=== PATIENT | male | born 1965 | race Caucasian/White ===

== ENCOUNTER 2019-01-22 07:05 | Day surgery (SDC) | payer BC ==
[~2019-01-22 07:05] MED LIST: CELECOXIB 100 MG CAPSULE PO ONE; FAMOTIDINE 20MG TABLET PO ONE; MECLIZINE 25 MG TABLET PO ONE; METOCLOPRAMIDE 10 MG TABLET PO ONE; VANCOMYCIN 1GM/200ML PREMIX 1 GM/200 ML PIGGYBACK IVPB ONE
[2019-01-22] MEDS ORDERED: KETAMINE HCL 100MG/1ML VIAL INJ ONE (07:06)
[2019-01-22] MEDS ORDERED: ROPIVACAINE HCL (NAROPIN) /PF 5MG/ML 20ML VIAL IV ONE (07:06)
[2019-01-22] MEDS ORDERED: PROPOFOL 10 MG/ML VIAL IV ONE (07:06)
[2019-01-22] MEDS ORDERED: FLUMAZENIL 1MG/10ML VIAL IV ONE (07:06)
[2019-01-22] MEDS ORDERED: MIDAZOLAM HCL 2MG/2ML VIAL IV ONE (07:06)
[2019-01-22] MEDS ORDERED: DEXAMETHASONE 4 MG/ML 1ML VIAL IVP ONE (07:06)
[2019-01-22] MEDS ORDERED: LIDOCAINE 2% MDV (20MG/ML) 20ML VIAL IV ONE (07:06)
[2019-01-22] MEDS ORDERED: TRANEXAMIC ACID 1,000 MG/10 ML ML IV ONE ×2 (07:06)
[2019-01-22] MEDS ORDERED: 0.9 % SODIUM CHLORIDE 10 ML VIAL IVP ONE (07:06)
[2019-01-22] MEDS ORDERED: RINGERS SOLUTION,LACTATED 1,000 ML IV ONE ×2 (07:54→10:45)
[2019-01-22 08:13] LABS: ABO GROUP A; ANTIBODY SCREEN NEGATIVE (NEGATIVE); RH TYPE POSITIVE
[2019-01-22] MEDS ORDERED: BUPIVACAINE 0.5% W/EPI MPF 30 ML VIAL SQ ONE (09:40)
[2019-01-22] MEDS ORDERED: SODIUM CHLORIDE 0.9% IV ONE (10:15)
[2019-01-22] MEDS ORDERED: GENTAMICIN SULFATE IV ONE (10:15)
[2019-01-22] MEDS ORDERED: BISACODYL 10 MG SUPP RC PRN (11:17)
[2019-01-22] MEDS ORDERED: TRAMADOL HCL 50 MG TABLET PO PRN (11:17)
[2019-01-22] MEDS ORDERED: HYDROMORPHONE HCL 2 MG/ML VIAL IM PRN (11:17)
[2019-01-22] MEDS ORDERED: ONDANSETRON HCL IV 4 MG/2 ML VIAL IVP PRN (11:17)
[2019-01-22] MEDS ORDERED: DIPHENHYDRAMINE HCL 25 MG CAPSULE PO PRN (11:17)
[2019-01-22] MEDS ORDERED: NALOXONE 0.4 MG/1 ML VIAL IVP PRN (11:17)
[2019-01-22] MEDS ORDERED: ACETAMINOPHEN 325 MG TAB PO PRN (11:17)
[2019-01-22] MEDS ORDERED: KETOROLAC 30 MG/ML VIAL IVP PRN ×2 (11:17)
[2019-01-22] MEDS ORDERED: ZOLPIDEM TARTRATE 5 MG TABLET PO PRN (11:17)
[2019-01-22] MEDS ORDERED: AL HYDROX/MAG HYDROX 30ML UD PO PRN (11:17)
[2019-01-22] MEDS ORDERED: ACETAMINOPHEN W/ CODEINE 300MG/60MG TABLET PO PRN ×2 (11:17)
[2019-01-22] MEDS ORDERED: MAGNESIUM HYDROXIDE 30 ML UDC PO PRN (11:17)
[2019-01-22] MEDS ORDERED: KETOROLAC 30 MG/ML VIAL IVP ONE (11:20)
[2019-01-22] MEDS: HYDROCODONE/APAP 10/325 TABLET PO PRN ×2 (12:45→19:22)
--- NOTE | 2019-01-22 15:27 | Rehab Evaluation ---
Patient Information - Patient Information Diagnosis: L knee OA Ordered Treatment: PT Evaluate and Treat Status: Initial Evaluation Surgery: Yes (L knee TKA) Date of Surgery: 01/22/19 Past Medical/Surgical Hx: PAST MEDICAL/SURGICAL HISTORY Past Surgical History RTKA 2013 BILAT KNEE SCOPES ORIF LEFT ARM PMH - Respiratory Hx Respiratory Disorders No Comment: ALLERGIES PMH - Cardiovascular Hx Cardiovascular Disorders No Exercise Tolerance Good PMH - Neuro Hx Neurological Disorders No PMH - GI Hx Gastrointestinal Disorders No PMH - Hx Genitourinary Disorders No PMH - Endocrine Hx Endocrine Disorders No PMH - Musculoskeletal Hx Musculoskeletal Disorders Yes Hx Arthritis Yes: LEFT KNEE PMH - Psych Hx Psychiatric Problems No PMH - Hematology/Oncology Hx Hematology/Oncology No Disorders Premorbid Status: Detail (The patient was independent with all mobility prior to surgery.) Social History: Detail (The patient lives with spouse in a 2 story house with a ramp at the enterance. The patient is using the main floor following surgery. The bathroom is equipped with : tub/shower combination, grab bars and standard toilet. No grab bars are presetn in the bathroom. The patient has crutches.) Precautions: [place], Fall, Other (WBAT on the L LE.) - Time With Patient Total Time Spent With Patient (Min): 30 Treatment Procedures: Detail (Initial Evaluation, low complexity, gait training) Subjective Information - Subjective Information Per Patient (The patient has minimal complaints of L knee pain level 2 to 3 at the highest using 0-10 pain scale.) Objective Data - Mental Status Patient Orientation: Oriented x3 - Visual Perception Appears within normal limits for therapeutic activities - ROM Not within normal limits (The patient's L knee AROM is limited as to be expected following surgery. All other AROM is WNL.) - Strength/Tone Not within normal limits (The patient's L LE strength was not tested s/p surgery however was functional. R LE was WNL.) - Bed Mobility Independent (The patient was independent with supine to and from sit transfer with use of R LE to lift L LE. The patient was independent with scooting up in bed.) - Transfers Independent (The patient was independent with sit to and from stand transfer with use of crutches.) - Balance Balance Sitting: Good Balance Standing: Good - Sensation Intact - Gait Detail (The patient ambulated with crutches WBAT on the L LE independently with one to handle equipment a distance of 100 feet x 1.) Therapy Assessment - Therapy Assessment Detail (The patient was independent with ambulation, bed mobility and transfers. Feel the patient will progress well with mobility.) Problem List - Problem List Physical Therapy Problem List: Detail (1)Decreased L knee AROM and L LE strength as to be expected following surgery.) Goals - Goals Physical Therapy Goals: 1) The patient will be independent with TKA HEP. 2) The patient will demonstrate good understanding of ambulation on stairs. Prognosis - Prognosis Good Plan - Plan Physical Therapy Plan: PT 1-2 sessions for instruction in HEP and gait training.
[2019-01-22] MEDS: POTASSIUM CHLORIDE/D5-0.9%NACL 20 MEQ/1,000 ML BAG IV SCH ×2 (16:17→20:10)
[2019-01-22] MEDS: VANCOMYCIN 1GM/200ML PREMIX 1 GM/200 ML PIGGYBACK IVPB SCH (20:00)
[2019-01-22] MEDS: DOCUSATE SODIUM 100 MG CAPSULE PO SCH (21:43)
[2019-01-23] MEDS: POTASSIUM CHLORIDE/D5-0.9%NACL 20 MEQ/1,000 ML BAG IV SCH ×2 (05:59→13:10)
[2019-01-23] MEDS: HYDROCODONE/APAP 10/325 TABLET PO PRN ×4 (06:01→18:02)
[2019-01-23 06:36] LABS: HEMATOCRIT 39.9 % (42.0-52.0); HEMOGLOBIN 13.3 gm/dl (14.0-18.0)
[2019-01-23 06:48] LABS: BLOOD UREA NITROGEN 17 mg/dL (6-20); EST GLOMERULAR FILTRATION RATE > 60 mL/min; GLUCOSE,RANDOM 125 mg/dL (74-109)
[2019-01-23] MEDS: VANCOMYCIN 1GM/200ML PREMIX 1 GM/200 ML PIGGYBACK IVPB SCH (08:44)
[2019-01-23] MEDS: DOCUSATE SODIUM 100 MG CAPSULE PO SCH (09:58)
[2019-01-23] MEDS ORDERED: RIVAROXABAN 10 MG TABLET PO SCH (10:00)
[2019-01-23] MEDS ORDERED: FERROUS SULFATE 325 MG TAB PO SCH (10:00)
--- NOTE | 2019-01-23 11:09 | Physical Therapy Tx Note ---
Physical Therapy Tx Note - Treatment Note Tolerated: Good Total Time Spent With Patient: 20 Physical Therapy Tx Note: Detail (Patient was standing in room upon SALES ASSOCIATE KEY HOLDER arrival. Patient states left knee a little sore today. Patient ambulated 294 feet with crutches SBA x1. Patient descended and ascended 3 steps CGA x1. Patient transferred sit to supine independently. Patient performed the following exercises reclined in bed x10 reps each: ankle pumps, glut squeezes, quad sets, heel slides, SLR, and hamstring sets. Patient tolerated treatment well. Patient displays good understanding of ambulation, stair climbing, and HEP. Patient discharged from inpatient PT at this time as all goals are met. Patient was left reclined in bed with call light within reach.) Physical Therapy Problem List: Detail (1)Decreased L knee AROM and L LE strength as to be expected following surgery.) Physical Therapy Goals: 1) The patient will be independent with TKA HEP. Met. 2) The patient will demonstrate good understanding of ambulation on stairs. Met Prognosis: Good Physical Therapy Plan: Patient discharged from inpatient PT at this time as all goals are met.
--- NOTE | 2019-01-23 11:35 | Rehab Evaluation ---
Patient Information - Patient Information Diagnosis: L knee OA Ordered Treatment: OT Evaluate and Treat Status: Initial Evaluation Surgery: Yes (L knee TKA) Date of Surgery: 01/22/19 Past Medical/Surgical Hx: PAST MEDICAL/SURGICAL HISTORY Past Surgical History RTKA 2013 BILAT KNEE SCOPES ORIF LEFT ARM PMH - Respiratory Hx Respiratory Disorders No Comment: ALLERGIES PMH - Cardiovascular Hx Cardiovascular Disorders No Exercise Tolerance Good PMH - Neuro Hx Neurological Disorders No PMH - GI Hx Gastrointestinal Disorders No PMH - Hx Genitourinary Disorders No PMH - Endocrine Hx Endocrine Disorders No PMH - Musculoskeletal Hx Musculoskeletal Disorders Yes Hx Arthritis Yes: LEFT KNEE PMH - Psych Hx Psychiatric Problems No PMH - Hematology/Oncology Hx Hematology/Oncology No Disorders Premorbid Status: Detail (The patient was independent with all ADLs and functional mobility prior to surgery, driving and working.) Social History: Detail (The patient lives with spouse in a 2 story house with a ramp at the enterance. The patient is using the main floor following surgery. The bathroom is equipped with a tub/shower combination, grab bars and standard height toilet. No grab bars are present in the bathroom. The patient has crutches.) Precautions: [place], Fall, Other (WBAT on the L LE.) - Time With Patient Total Time Spent With Patient (Min): 22 (1 eval) Treatment Procedures: Detail (OT eval: low complexity) Subjective Information - Subjective Information Per Patient (Ok to see per JEREMY Vivas. Pt agreeable to OT eval.) Objective Data - Pain Pain Present: No - Mental Status Patient Orientation: Oriented x3 - Visual Perception Appears within normal limits for therapeutic activities - ROM Within normal limits (B UEs) - Strength/Tone Within normal limits (B UEs) - Coordination Appears within normal limits for therapeutic activities - Bed Mobility Independent (Supine to/from EOB with slight increased difficulty, therapist educated Pt on use of leg microelectronics assembler for assist.) - Transfers Independent (Sit to/from stand from EOB to crutches with good balance and safety awareness. Static standing without crutches.) - Balance Balance Sitting: Good Balance Standing: Good (Good-) - Sensation Intact - Gait Detail (Functional mobility within room and to/from standard toilet with crutches and no safety concerns.) - ADL's/IADL's Detail (Pt demos independence with total body dressing, including verbaling techs to don/doff tedhose with assist, safety with functional mobility, and verbalizes understanding re: home safety.) Therapy Assessment - Therapy Assessment Detail (Pt demos good independence, balance, and safety. Rec DC home with spouse assist as needed when medically ready.) Patient Education - Patient Education Teaching Topic: Other (modified techniques) Response: Return Demonstration, Verbalize Understanding Teaching Method: Discussion, Demonstration Teaching Recipient: Patient Barriers To Learning: None Problem List - Problem List Physical Therapy Problem List: Detail (1)Decreased L knee AROM and L LE strength as to be expected following surgery.) Occupational Therapy Problem List: Detail (No further skilled IP OT needs identified.) Goals - Goals Physical Therapy Goals: 1) The patient will be independent with TKA HEP. Met. 2) The patient will demonstrate good understanding of ambulation on stairs. Met Occupational Therapy Goals: No further skilled IP OT needs/goals identified. Prognosis - Prognosis Good Plan - Plan Physical Therapy Plan: Patient discharged from inpatient PT at this time as all goals are met. Occupational Therapy Plan: No further skilled IP OT needs/goals identified, DC IP OT. Thank you for this referral.
--- NOTE | 2019-01-25 11:09 | Operative Note ---
DATE OF SURGERY: 01/22/2019 PREOPERATIVE DIAGNOSIS: End-stage arthrosis of the left knee. POSTOPERATIVE DIAGNOSIS: End-stage arthrosis of the left knee. OPERATION: Cemented left total knee arthroplasty using [employer] II components with a size 6 Oxinium femur, a size 6 stemmed tibia baseplate, a 9 mm lipped highly crosslinked tibial insert, and a 35 mm all plastic patella. STAFF SURGEON: Adam Hilliard MD PRINCIPAL WEB DEVELOPER: Mrs. Romy Rachel ANESTHESIA: General.____ PREPARATION: Chloraprep. INDIVIDUAL CONSIDERATIONS: None. PROCEDURE: The patient was taken to the operating room, placed supine on the operating room table. He had a successful induction with general anesthetic. The left lower extremity was prepped and draped in the usual fashion. The patient had a midline approach to the knee. The limb was elevated and tourniquet was inflated to 250 mmHg. Sharp dissection carried down through skin and subcutaneous tissue. Small veins were coagulated with a Bovie. A medial arthrotomy was performed. The patella was everted and the knee was flexed. The patient had exposed bone with bone loss in the medial patellofemoral compartments. Fat pad was resected, ACL was sacrificed, and provisional anterior meniscectomies were performed. The capsule was released from the medial proximal tibia. The initial femoral air force pilot hole was then made freehand. The intramedullary femoral cutting jig was placed. It was cut in 7.0 degrees of valgus and adjusted for rotation and secured with pins for a 10 mm resection. The initial transverse cut was then made. The skin guide was placed in the anterior and posterior air force pilot holes. It was found that a size 6 would be appropriate. The anterior and posterior cuts followed by chamfer cuts were made. Osteophytes removed, and a size 6 trial was placed and found to fit well. The tibia was brought forward, and the remainder of the meniscal remnants removed with a Bovie. The extraarticular tibial cutting jig was placed. It was cut in neutral with a 3-degree AP slope. It was set for a 9 mm resection keyed off the high lateral side and secured with pins. When cutting the tibia, care was taken to preserve the PCL insertion on the tibia. After removing large medial osteophytes, I could fit a size 6 baseplate. It was adjusted for rotation and secured with pins. With a 9 mm trial and femoral trial, there was excellent motion and stability, ligamentous balance, rotation alignment, and patellofemoral tracking were normal. No lateral release was required. Femoral air force pilot holes were impacted and tri-flange tibial stamp was impacted, and these trial components were removed. The patient had a thick patella and roughly 9 mm of bone was removed freehand. There was sufficient bone for a component, and the 3 air force pilot holes were drilled for a 35 patella. The tourniquet was let down briefly to get bleeders posteriorly and then placed back up again. The knee was then thoroughly irrigated out with pulsatile Betadine and saline to remove any visual or palpable debris. Bony surfaces were then dried. A size 6 stemmed tibia baseplate was cemented into place followed by impaction of the 9 mm lipped highly crosslinked tibial insert followed by cementing in the size 6 Oxinium femur followed by cementing in the 35 mm patella. The implant surfaces were compressed, excess cement was removed. After the cement had set, there was excellent motion and stability, ligamentous balance, rotation alignment, and patellofemoral tracking were normal. No lateral release was required. After thorough irrigation to remove any visual or palpable debris, the tourniquet was let down. Hemostasis was obtained with a Bovie. The capsule was then closed with a running #2 quill, subcu was closed in layers with running 0 quill, skin was closed with froylan. I did infiltrate the skin prior to closure with 30 mL of 0.5% Marcaine with epinephrine. I also infiltrated the periosteum on both sides. After closure, I then injected 1 g of tranexamic acid mixed with 30 mL of saline through a sterile 18-gauge needle, and a sterile bulky compressive MIKAEL-type dressing was applied. The patient tolerated the procedure well. Needle and sponge counts were correct. Estimated blood loss was minimal, and he was taken back to recovery in good condition. There were no complications. CESAR
== END 2019-01-23 18:30 | disposition home or self-care (01) ==
LOC: SUR 07:05 → MEDSURG 11:47 → SUR 01-23 18:30
PROVIDERS: ATTEND Orthopaedic Surgery
DX: M17.12 Unilateral primary osteoarthritis, left knee (principal)
CPT/HCPCS: 80048; 85014; 85018; 86850; 86900; 86901; J1580; J1885; J3370; J3480; J3490; J7120

== ENCOUNTER 2019-06-12 12:01 | Day surgery (SDC) | payer BC ==
[~2019-06-12 12:01] MED LIST changes: +ACETAMINOPHEN 1,000 MG/100 ML BTL IVPB ONE; -CELECOXIB 100 MG CAPSULE PO ONE; -FAMOTIDINE 20MG TABLET PO ONE; -MECLIZINE 25 MG TABLET PO ONE; -METOCLOPRAMIDE 10 MG TABLET PO ONE; -VANCOMYCIN 1GM/200ML PREMIX 1 GM/200 ML PIGGYBACK IVPB ONE
[2019-06-12] MEDS ORDERED: LIDOCAINE 2% MDV (20MG/ML) 20ML VIAL IV ONE (12:02)
[2019-06-12] MEDS ORDERED: KETOROLAC 30 MG/ML VIAL IVP ONE (12:02)
[2019-06-12] MEDS ORDERED: PROPOFOL 10 MG/ML VIAL IV ONE (12:02)
[2019-06-12] MEDS ORDERED: FENTANYL PF 100MCG/2ML VIAL IV ONE (12:02)
[2019-06-12] MEDS ORDERED: RINGERS SOLUTION,LACTATED 1,000 ML IV ONE (12:45)
[2019-06-12] MEDS ORDERED: METHYLPREDNISOLONE 40MG/VIAL IU ONE (14:07)
[2019-06-12] MEDS ORDERED: BUPIVACAINE 0.5% W/EPI MPF 30 ML VIAL IU ONE (14:07)
--- NOTE | 2019-06-13 09:40 | Operative Note ---
DATE OF SURGERY: 06/12/2019 PREOPERATIVE DIAGNOSIS: Arthrofibrosis of the left knee. POSTOPERATIVE DIAGNOSIS: Arthrofibrosis of the left knee. OPERATION: 1. Left knee manipulation under anesthesia. 2. Left knee injection. STAFF SURGEON: Adam Hilliard MD ANESTHESIA: General. PREPARATION: Chloraprep. INDIVIDUAL CONSIDERATIONS: None. PROCEDURE: The patient was taken to the operating room, placed supine on the operating room table. He had a successful induction of a general anesthetic. I then went ahead and manipulated his knee. He had full extension and at about 100 degrees, I felt a solid end point. I was able to push him through to about 130. I then prepped him with Chloraprep superolaterally and injected 15 mL of 0.5% Marcaine with epinephrine along with 40 mg of Depo-Medrol through a sterile 20- gauge needle. A sterile bulky Band-Aid was applied. He was taken back to recovery in good condition. There were no complications. CESAR
== END 2019-06-12 15:02 | disposition home or self-care (01) ==
LOC: SUR 12:01
PROVIDERS: ATTEND Orthopaedic Surgery
DX: M24.662 Ankylosis, left knee (principal)
CPT/HCPCS: J1030; J1885; J7120